=== PATIENT | female | born 1995 | race Caucasian/White ===

== ENCOUNTER 2017-01-19 14:18 | Emergency (ER) | payer MEDICAID, OTHER ==
[2017-01-19 14:49] VITALS: BMI 36.2
[2017-01-19 14:58] VITALS: BP 105/69; PULSE 82; TEMP 98.2; O2SAT 99
[2017-01-19 16:17] VITALS: RESP 20
--- NOTE | 2017-01-19 17:55 | C.PDOC ---
History Of Present Illness 21 y/o female presents to ed with complaints of sharp pain to left shoulder worse with movement. Patient reports taking Aleve this morning with no relief which prompted visit to ED today. Patient denies direct injury, chest pain, SOB , back pain or any other complaints at this time. Time Seen by Provider: 01/19/17 15:13 Chief Complaint (Nursing): Upper Extremity Problem/Injury History Per: Patient History/Exam Limitations: no limitations Onset/Duration Of Symptoms: Days Current Symptoms Are (Timing): Still Present Quality: "Pain" Past Medical History Reviewed: Historical Data, Nursing Documentation, Vital Signs Vital Signs: Last Vital Signs Temp 98.2 F 01/19/17 14:50 Pulse 82 01/19/17 14:50 Resp 20 01/19/17 16:17 BP 105/69 01/19/17 14:50 Pulse Ox 99 01/19/17 17:58 Surgical History: No Surg Hx - [facility] Procedures REMOV INTRALUM VAG FB (10/13/12) Family History: States: No Known Family Hx - Social History Hx Tobacco Use: No Hx Alcohol Use: No Hx Substance Use: No - Immunization History Hx Influenza Vaccination: No Hx Pneumococcal Vaccination: No Review Of Systems Except As Marked, All Systems Reviewed And Found Negative. Constitutional: Negative for: Fever, Chills Cardiovascular: Negative for: Chest Pain Respiratory: Negative for: Shortness of Breath Musculoskeletal: Positive for: Shoulder Pain. Negative for: Back Pain Skin: Negative for: Rash Neurological: Negative for: Weakness, Numbness Physical Exam - Physical Exam Appears: Well, Non-toxic, No Acute Distress Skin: Normal Color, Warm, Dry, No Rash Head: Atraumatic, Normacephalic Eye(s): bilateral: Normal Inspection, EOMI Nose: Normal Oral Mucosa: Moist Neck: Normal ROM, Supple Chest: Symmetrical Cardiovascular: Rhythm Regular Respiratory: Normal Breath Sounds Extremity: Normal ROM, Tenderness (Point tenderness to anterior aspect of left shoulder), Capillary Refill (<2 seconds), No Deformity, No Swelling Extremity: Bilateral: Atraumatic, Normal Color And Temperature, Normal ROM Pulses: Left Radial: Normal, Right Radial: Normal Neurological/Psych: Oriented x3, Normal Motor, Normal Sensation ED Course And Treatment O2 Sat by Pulse Oximetry: 99 (RA) Pulse Ox Interpretation: Normal Progress Note: Patient is requesting to leave, does not want to wait for medication , XR, or EKG. Instructed to followup with PMD in 1-2 days. Disposition - Disposition Referrals: Clinic,Med Surg [Primary Care Provider] - Disposition: ELOPEMENT - ER ONLY Disposition Time: 16:00 Condition: STABLE Forms: [facility] ([place]ran) - Clinical Impression Clinical Impression: Left shoulder pain - PA / LINE COOK / Resident Statement MD/DO has reviewed & agrees with the documentation as recorded. - Scribe Statement The provider has reviewed the documentation as recorded by the Opheliaiblong Burnette All medical record entries made by the Jaci were at my direction and personally dictated by me. I have reviewed the chart and agree that the record accurately reflects my personal performance of the history, physical exam, medical decision making, and the department course for this patient. I have also personally directed, reviewed, and agree with the discharge instructions and disposition.
== END 2017-01-19 16:17 | disposition left against medical advice (07) ==
LOC: C.ER 14:18 → SUPCPDRO 14:18 → C.ER 16:17
DX: M25.512 Pain in left shoulder (principal)